=== PATIENT | female | born 1995 | race Caucasian/White ===

== ENCOUNTER 2016-12-14 17:41 | Emergency (ER) | payer OTHER ==
[~2016-12-14] VITALS: Ht 149.9 cm; Wt 44.0 kg
[~2016-12-14 17:41] MED LIST: ALPRAZOLAM ER1 MG PO; AMBIEN10 MG PO; BUPROPION XL300 MG PO; CEFTIN500 MG PO; CEFUROXIME500 MG PO; DOCUSATE SODIU100 MG PO; DOXYCYCLINE HY100 M3 PO; DOXYCYCLINE HY100 MG PO; FERRO-SEQUELS1 EACH PO; IRON325 M1 PO; MICONAZOLE 7100 MG VAGINAL; MONO-LINYAH1 EACH PO; NAPROSYN500 MG PO; NORCO 5-325 TA1 EACH PO; PERCOCET 5-3251 EACH PO; PRENATABS RX T1 EACH PO; PROMETHAZINE HC25 M1 PO; VENLAFAXINE H37.5 M1 PO; VICODIN 5-3001 EACH PO; WELLBUTRIN XL300 MG PO
[2016-12-14] MEDS ORDERED: ALPRAZOLAM XR1 MG PO (20:15)
[2016-12-14] MEDS ORDERED: ALPRAZOLAM0.5 MG PO (22:09)
== END 2016-12-14 22:24 | disposition home or self-care (01) ==
LOC: ED 17:41
DX: F41.0 Panic disorder [episodic paroxysmal anxiety] (principal); F32.9 Major depressive disorder, single episode, unspecified; F17.200 Nicotine dependence, unspecified, uncomplicated; Z90.89 Acquired absence of other organs; Z79.899 Other long term (current) drug therapy
CPT/HCPCS: 99283

== ENCOUNTER 2017-06-05 12:04 | Emergency (ER) | payer OTHER ==
[~2017-06-05] VITALS: Ht 149.9 cm; Wt 46.3 kg
[~2017-06-05 12:04] MED LIST changes: +ALPRAZOLAM XR1 MG PO; +ALPRAZOLAM0.5 MG PO
[2017-06-05] MEDS ORDERED: NAPROSYN500 MG PO (15:07)
== END 2017-06-05 15:16 | disposition home or self-care (01) ==
LOC: ED 12:04
DX: M27.3 Alveolitis of jaws (principal); F32.9 Major depressive disorder, single episode, unspecified; F17.200 Nicotine dependence, unspecified, uncomplicated; Z90.89 Acquired absence of other organs; Z79.899 Other long term (current) drug therapy
CPT/HCPCS: 99283

== ENCOUNTER 2017-10-01 15:35 | Emergency (ER) | payer OTHER ==
[~2017-10-01] VITALS: Ht 149.9 cm; Wt 46.3 kg
== END 2017-10-01 17:18 | disposition home or self-care (01) ==
LOC: ED 15:35
DX: N94.6 Dysmenorrhea, unspecified (principal); F17.200 Nicotine dependence, unspecified, uncomplicated; Z79.899 Other long term (current) drug therapy
CPT/HCPCS: 84703; 85025; 96374; 99283; J2405

== ENCOUNTER 2018-07-18 17:18 | Emergency (ER) | payer OTHER ==
[~2018-07-18] VITALS: Ht 147.3 cm; Wt 43.2 kg
[~2018-07-18 17:18] MED LIST changes: +AUGMENTIN 875-1 EACH PO; +HYDROCODON-ACE1 EA10 PO; +LEVOFLOXACIN500 MG PO; +NICORETTE4 M2 BUCCAL; +NORCO 10-325 T1 EACH PO; +XANAX0.5 MG PO
--- OUTSIDE RECORDS SUMMARY | 2018-07-18 17:22 | XMS ---
PreManage Notification: KATHRYN PHELPS Security Disposition Clerk Events No recent Security Events currently on file CRITERIA MET - 6 ED Visits in 6 Months - [facility] - Has Care Guidelines - PDMP - [facility] - 2 Visits in 30 Days CARE PROVIDERS MERCEDES ANDREWS Family [facility] 04/04/2018-Current PHONE: [phone] DR MERCEDES ANDREWS Primary Care Current PHONE: [phone] MIRYAM RIOS Primary Care Current PHONE: Unknown WENDIE ANDINO DR Primary Care Current PHONE: Unknown [facility] PHONE: Unknown Alona has no Care Guidelines for this patient. Care History Medical/Surgical 04/11/2018 [facility] - PATIENT HAS CELLULITIS OF THE EYE AREA. PATIENT HAS NO SHOWED TO HER PRIMARY CARE APPOINTMENT AND DID NOT SHOW UP TO THE SURGERY THAT WAS SCHEDULED WITH DR KEITH . - PLEASE TAKE PRECAUTIONS WHEN PROVIDING NARCOTICS TO THIS PATIENT. - PATIENT HAS NOT FOLLOWED THROUGH WITH CURRENT MEDICAL HELP/REFERRAL ASSISTANCE. - PLEASE CONTACT CHW AT [facility]- [phone] EMMANUEL IF PATIENT IS SEEN IN THE ED. E.D. VISIT COUNT (12 MO.) [address] [place] [address] TOTAL 7 NOTE: Visits indicate total known visits. ED/UCC VISIT TRACKING (12 MO.) 07/18/2018 17:19 [facility] [place] TYPE: Emergency COMPLAINT: - LEFT FOOT INJURY 07/03/2018 09:28 [facility] [place] TYPE: Emergency DIAGNOSES: - Abscess of the breast and nipple - SPIDER BITE 04/06/2018 02:01 [facility] [place] TYPE: Emergency DIAGNOSES: - Eye Pain - Right Eye Spider Bite - Abscess of right upper eyelid - Insect Bite 04/04/2018 15:14 [facility] [place] TYPE: Emergency COMPLAINT: - R EYE SWOLLEN DIAGNOSES: - Anxiety disorder, unspecified - Cellulitis of right orbit - Unspecified purulent endophthalmitis, right eye - Nicotine dependence, unspecified, uncomplicated - Other intermediate accountant (current) drug therapy - Major depressive disorder, single episode, unspecified 04/03/2018 08:11 [facility] [place] TYPE: Emergency COMPLAINT: - SPIDER BITE/EYE PAIN DIAGNOSES: - Major depressive disorder, single episode, unspecified - Nicotine dependence, unspecified, uncomplicated - Abscess of eyelid right eye, unspecified eyelid - Anxiety disorder, unspecified 03/15/2018 10:41 [facility] [place] TYPE: Emergency COMPLAINT: - POSS OVARIAN CYST 10/01/2017 15:35 [facility] [place] TYPE: Emergency COMPLAINT: - VAGINAL BLEEDING DIAGNOSES: - Nicotine dependence, unspecified, uncomplicated - Abnormal uterine and vaginal bleeding, unspecified - Dysmenorrhea, unspecified - Other fci (current) drug therapy INPATIENT VISIT TRACKING (12 MO.) 03/15/2018 14:[address] [facility] [place] TYPE: Medical Surgical COMPLAINT: - SEPSIS PYELONEPHRITIS DIAGNOSES: - Sepsis due to Escherichia coli [E. coli] - Hypomagnesemia - Hypo-osmolality and hyponatremia - Other specified anxiety disorders - Hypokalemia - Hypovolemia - Sepsis, unspecified organism - Acute pyelonephritis - Other psychoactive substance dependence, in remission [id number]
== END 2018-07-18 18:33 | disposition home or self-care (01) ==
LOC: ED 17:18
DX: S90.32XA Contusion of left foot, initial encounter (principal); F32.9 Major depressive disorder, single episode, unspecified; F41.9 Anxiety disorder, unspecified; F17.200 Nicotine dependence, unspecified, uncomplicated; W23.0XXA Caught, crushed, jammed, or pinched between moving objects, initial encounter
CPT/HCPCS: 73630; 99283

== ENCOUNTER 2018-09-20 19:10 | Emergency (ER) | payer OTHER ==
[~2018-09-20] VITALS: Ht 147.3 cm; Wt 43.1 kg
--- OUTSIDE RECORDS SUMMARY | 2018-09-20 19:12 | XMS ---
PreManage Notification: KATHRYN PHELPS Security Nurse Leader Events No recent Security Events currently on file CRITERIA MET - 6 ED Visits in 6 Months - [facility] CARE PROVIDERS MERCEDES ANDREWS [facility] 04/04/2018-Current PHONE: [phone] DR MERCEDES ANDREWS Primary Care Current PHONE: [phone] MIRYAM RIOS Primary Care Current PHONE: Unknown CLIFF MERCADO Primary Care Current Raffi PHONE: Unknown [facility] PHONE: Unknown Alona has no Care Guidelines for this patient. Care History Medical/Surgical 04/11/[address] [facility] - PATIENT HAS CELLULITIS OF THE EYE AREA. PATIENT HAS NO SHOWED TO HER PRIMARY CARE APPOINTMENT AND DID NOT SHOW UP TO THE SURGERY THAT WAS SCHEDULED WITH DR KEITH . - PLEASE TAKE PRECAUTIONS WHEN PROVIDING NARCOTICS TO THIS PATIENT. - PATIENT HAS NOT FOLLOWED THROUGH WITH CURRENT MEDICAL HELP/REFERRAL ASSISTANCE. - PLEASE CONTACT CHW AT [facility]- [phone] EMMANUEL IF PATIENT IS SEEN IN THE ED. E.D. VISIT COUNT (12 MO.) 1 [facility] [address] TOTAL 8 NOTE: Visits indicate total known visits. ED/C VISIT TRACKING (12 MO.) 09/20/2018 19:11 [facility] [place] TYPE: Emergency COMPLAINT: - WOUND CHECK 07/18/2018 17:19 [facility] [place] TYPE: Emergency COMPLAINT: - LEFT FOOT INJURY DIAGNOSES: - Contusion of left foot, initial encounter - Caught, crushed, jammed, or pinched between moving objects, initial encounter - Nicotine dependence, unspecified, uncomplicated - Anxiety disorder, unspecified - Major depressive disorder, single episode, unspecified - Pain in left foot 07/03/2018 09:28 [facility] [place] TYPE: Emergency DIAGNOSES: - Abscess of the breast and nipple - SPIDER BITE 04/06/2018 02:01 [facility] [place] H. TYPE: Emergency DIAGNOSES: - Eye Pain - Right Eye Spider Bite - Abscess of right upper eyelid - Insect Bite 04/04/2018 15:14 [facility] [place] TYPE: Emergency COMPLAINT: - R EYE SWOLLEN DIAGNOSES: - Anxiety disorder, unspecified - Cellulitis of right orbit - Unspecified purulent endophthalmitis, right eye - Nicotine dependence, unspecified, uncomplicated - Other laborer marine terminal (current) drug therapy - Major depressive disorder, single episode, unspecified 04/03/2018 08:11 [facility] [place] TYPE: Emergency COMPLAINT: - SPIDER BITE/EYE PAIN DIAGNOSES: - Major depressive disorder, single episode, unspecified - Nicotine dependence, unspecified, uncomplicated - Abscess of eyelid right eye, unspecified eyelid - Anxiety disorder, unspecified 03/15/2018 10:[address] [place] TYPE: Emergency COMPLAINT: - POSS OVARIAN CYST 10/01/2017 15:35 [facility] [place] TYPE: Emergency COMPLAINT: - VAGINAL BLEEDING DIAGNOSES: - Nicotine dependence, unspecified, uncomplicated - Abnormal uterine and vaginal bleeding, unspecified - Dysmenorrhea, unspecified - Other mcfp (current) drug therapy INPATIENT VISIT TRACKING (12 MO.) 03/15/2018 14:55 [facility] [place] TYPE: Medical Surgical COMPLAINT: - SEPSIS PYELONEPHRITIS DIAGNOSES: - Sepsis due to Escherichia coli [E. coli] - Hypomagnesemia - Hypo-osmolality and hyponatremia - Other specified anxiety disorders - Hypokalemia - Hypovolemia - Sepsis, unspecified organism - Acute pyelonephritis - Other psychoactive substance dependence, in remission [id number]
[2018-09-20] MEDS ORDERED: KEFLEX500 MG PO (19:54)
[2018-09-20] MEDS ORDERED: BACTRIM DS TAB1 EACH PO (19:54)
== END 2018-09-20 20:04 | disposition home or self-care (01) ==
LOC: ED 19:10
DX: L02.214 Cutaneous abscess of groin (principal); F17.200 Nicotine dependence, unspecified, uncomplicated
CPT/HCPCS: 99282

== ENCOUNTER 2019-04-20 18:48 | Emergency (ER) | payer OTHER ==
[~2019-04-20] VITALS: Ht 147.3 cm; Wt 43.2 kg
--- OUTSIDE RECORDS SUMMARY | ~2019-04-20 | XMS | Clinical Summary ---
Demographics + + + | Address | [address] | | | [place] [address] | + + + | Home Phone | | + + + | Preferred Language | Unknown | + + + | Marital Status | Single | + + + | Moravian Affiliation | Unknown | + + + | Race | Unknown | + + + | Ethnic Group | Unknown | + + + Author + + + | Author | [facility] [place] | | | and [place] | + + + | Organization | [facility] [place] | | | and [place] | + + + | Address | Unknown | + + + | Phone | Unavailable | + + + Support + + +---------+ + | Name | Relationship | Address | Phone | + + +---------+ + | Provided None | ECON | Unknown | | + + +---------+ + Care Team Providers + +------+ + | Care Regional Business Manager Name | Role | Phone | + +------+ + | No, Physician | PCP | Unavailable | + +------+ + Allergies No Known Allergies Medications No known medications Active Problems Not on file Social History + +-------+ +--------+------+ | Tobacco Use | Types | Packs/Day | Years | Date | | | | | Used | | + +-------+ +--------+------+ | Never Assessed | | | | | + +-------+ +--------+------+ + + + | Sex Assigned at | Date Recorded | | | | + + + | Not on file | | + + + + + + + | Job Start Date | Occupation | Industry | + + + + | Not on file | Not on file | Not on file | + + + + + + + + | Travel History | Travel Start | Travel End | + + + + + + | No recent travel history available. | + + Last Filed Vital Signs + + + + + | Vital Sign | Reading | Time Taken | Comments | + + + + + | Blood Pressure | 124/83 | 09/22/2018 6:48 AM | | | | | PDT | | + + + + + | Pulse | 89 | 09/22/2018 6:48 AM | | | | | PDT | | + + + + + | Temperature | 36.9 C (98.4 F) | 09/22/2018 6:48 AM | | | | | PDT | | + + + + + | Respiratory Rate | 20 | 09/22/2018 6:48 AM | | | | | PDT | | + + + + + | Oxygen Saturation | 96% | 09/22/2018 6:48 AM | | | | | PDT | | + + + + + | Inhaled Oxygen | - | - | | | Concentration | | | | + + + + + | Weight | - | - | | + + + + + | Height | - | - | | + + + + + | Body Mass Index | - | - | | + + + + + Plan of Treatment + + + + + | Health Maintenance | Due Date | Last Done | Comments | + + + + + | Vaccine: HPV (1 - | | | | | Female 3-dose | 1 | | | | series) | | | | + + + + + | Vaccine: | | | | | Dtap/Tdap/Td (1 - | 5 | | | | Tdap) | | | | + + + + + | Cervical Cancer | | | | | Screening (Pap) | 7 | | | + + + + + | Vaccine: Influenza | | | | | (#1) | 9 | | | + + + + + Results Not on filefrom Last 3 Months Insurance + +--------+ +--------+ +---------+--------+ | Payer | Benefi | Subscriber | Effect | Phone | Address | Type | | | t Plan | ID | james | | | | | | / | | Dates | | | | | | Group | | | | | | + +--------+ +--------+ +---------+--------+ | [place] | MEDICA | [id number] | | [phone] | | Med[place] | | | [place] | | [id number]-Pr | 2 | | id | | | PLUS | | esent | | | | + +--------+ +--------+ +---------+--------+ + +--------+ +--------+ + + | Guarantor Name | Accoun | Relation to | Date | Phone | Billing Address | | | t Type | Patient | of | | | | | | | | | | + +--------+ +--------+ + + | Ana Marcano | Person | Self | [birth year] | [address] | | | al/Fam | | 1996 | [phone] | [place] [address] | | | marleny | | | 6 (Home) | | + +--------+ +--------+ + + Advance Directives + + + + + | Type | Date Recorded | Patient | Explanation | | | | Food Manager | | + + + + + | Power of | | | | | Typesetting Supervisor | | | | + + + + + | Advance | 09/22/2018 6:52 | | | | Directive | AM | | | + + + + +"
--- OUTSIDE RECORDS SUMMARY | ~2019-04-20 | XMS | Clinical Summary ---
Demographics + + + | Address | [address] | | | [place] [address] | + + + | Home Phone | | + + + | Preferred Language | Unknown | + + + | Marital Status | Single | + + + | Bahai Affiliation | Unknown | + + + | Race | Unknown | + + + | Ethnic Group | Unknown | + + + Author + + + | Author | [facility] [place] | | | and [place] | + + + | Organization | [facility] [place] | | | and [place] [...] Team Providers + +------+ + | Care Revenue Investigator Name | Role | Phone | + [...] +---------+--------+ | [place] | MEDICA | [id number] | | [phone] | | Medica | [...] Person | Self | [birth year] | [address] | | | al/Fam | | 1996 | [phone] | [place] [address] | | | marleny | | | 6 (Home) | | + +--------+ +--------+ + + Advance Directives + + + + + | Type | Date Recorded | Patient | Explanation | | | | Fur Nailer | | + + + + + | Power of | | | | | Sewing Machine Bobbin Winder | | | | + + + + + | Advance | 09/22/2018 6:52 | | | | Directive | AM | | | + + + + +"
--- OUTSIDE RECORDS SUMMARY | ~2019-04-20 | XMS | Encounter Summary ---
Demographics + + + | Address | [address] | | | [place] [address] | + + + | Home Phone | | + + + | Preferred Language | Unknown | + + + | Marital Status | Single | + + + | Catholic Affiliation | Unknown | + + + | Race | Unknown | + + + | Ethnic Group | Unknown | + + + Author + + + | Author | [facility] [place] | | | and [place] | + + + | Organization | [facility] [place] | | | and [place] | [...] Team Providers + +------+ + | Care Medical Physics Teacher Name | Role | Phone | + +------+ + | No, Physician | PCP | Unavailable | + +------+ + Reason for Visit +---------+ + | Reason | Comments | +---------+ + | Abscess | groin area. | +---------+ + Encounter Details +--------+ + + + + | Date | Type | Department | Care Team | Description | +--------+ + + + + | 09/22/ | Emergency | [facility] | Manjit Gallagher MD | Abscess (Primary Dx) | | 2019 | | [facility] | [address] | | | | | CENTER [address] | [place] | | | | | [place] | [address] | | | | | [address] | | | | | | [phone] | | | +--------+ + + + + Social History + +-------+ +--------+------+ | Tobacco [...] recent travel history available. | + + documented as of this encounter Last Filed Vital Signs + + + [...] | | + + + + + documented in this encounter Discharge Instructions Instructions Manjit Gallagher MD - 09/22/2018Please take antibiotics as prescribed. Return for any worsening pain, fevers, chills, nausea, vomiting. Keep area dry and clean. AttachmentsThe following attachments cannot be sent through Care Everywhere.Abscess, Antibi otic Treatment Only (Ukrainian)documented in this encounter Medications at Time of Discharge + + + +---------+ + + | Medication | Sig | Dispensed | Refills | Start | End Date | | | | | | Date | | + + + +---------+ + + | | Take 1 tablet by | 14 | 0 | 09/23/19 | | | sulfamethoxazole-tri | mouth 2 times daily | tablet | | 19 | 9 | | methoprim (BACTRIM | for 7 days. | | | | | | DS) 800-160 mg per | | | | | | | tablet | | | | | | + + + +---------+ + + documented as of this encounter Plan of Treatment + +------+--------+ + + | Name | Type | Priori | Associated Diagnoses | Date/Time | | | | ty | | | + +------+--------+ + + | ED INFORMATION | TRACIE | Routin | | 09/22/2018 7:00 AM | | EXCHANGE | | e | | PDT | + +------+--------+ + + documented as of this encounter Visit Diagnoses + + | Diagnosis | + + | Abscess - Primary Cellulitis and abscess of unspecified site | + + documented in this encounter"
--- OUTSIDE RECORDS SUMMARY | ~2019-04-20 | XMS | Encounter Summary ---
Demographics + + + | Address | [address] | | | [place] [address] | + + + | Home Phone | | + + + | Preferred Language | Unknown | + + + | Marital Status | Single | + + + | Gnosticism Affiliation | Unknown | + + + | Race | Unknown | + + + | Ethnic Group | Unknown | + + + Author + + + | Author | [facility] [place] | | | and [place] | + + + | Organization | [facility] [place] | | | and [place] | [...] Team Providers + +------+ + | Care Care Process Manager Name | Role | Phone | [...] | | | | CENTER [address] | [place] | | | | | [place] | [address] | | | | | [address] | | | | | | [phone] | | | +--------+ + + + [...] through Care Everywhere.Abscess, Antibi otic Treatment Only (Urdu)documented in this encounter Medications at Time of [...]
[~2019-04-20 18:48] MED LIST changes: +BACTRIM DS TAB1 EACH PO; +KEFLEX500 MG PO
--- OUTSIDE RECORDS SUMMARY | 2019-04-20 18:54 | XMS ---
PreManage Notification: KATHRYN PHELPS Security Herbicide Service Sales Representative Events No recent Security Events currently on file CRITERIA MET - [facility] CARE PROVIDERS MERCEDES ANDREWS [facility] 04/04/2018-Current PHONE: [phone] DR MERCEDES ANDREWS Primary Care Current PHONE: [phone] MIRYAM RIOS Primary Care Current PHONE: Unknown [facility] August RASHEED [facility] Primary Care Current PHONE: Unknown [facility] Primary Care [facility] PHONE: Unknown Alona has no Care Guidelines for this patient. Care History Medical/Surgical 09/21/2018 [facility] - PATIENT CURRENTLY AT A DETOX FACILITY. - EOIPA CASE MANAGEMENT CONSULT MADE- DUE TO RECENT ED UTILIZATION AND RESOURCES. 04/11/2018 [facility] - PATIENT HAS CELLULITIS OF THE EYE AREA. PATIENT HAS NO SHOWED TO HER PRIMARY CARE APPOINTMENT AND DID NOT SHOW UP TO THE SURGERY THAT WAS SCHEDULED WITH DR KEITH . - PLEASE TAKE PRECAUTIONS WHEN PROVIDING NARCOTICS TO THIS PATIENT. - PATIENT HAS NOT FOLLOWED THROUGH WITH CURRENT MEDICAL HELP/REFERRAL ASSISTANCE. - PLEASE CONTACT CHW AT [facility]- [phone] EMMANUEL IF PATIENT IS SEEN IN THE ED. ERosmery VISIT COUNT (12 MO.) 1 [facility] 1 [facility] 5 NOTE: Visits indicate total known visits. ED/UCC VISIT TRACKING (12 MO.) 04/20/2019 18:48 [facility] TYPE: Emergency COMPLAINT: - VOMITING 09/22/2018 06:36 [facility] Sabrina WEINSTEIN TYPE: Emergency DIAGNOSES: - Abscess - Cutaneous abscess, unspecified 09/20/2018 19:11 [facility] TYPE: Emergency COMPLAINT: - WOUND CHECK DIAGNOSES: - Cutaneous abscess of groin - Nicotine dependence, unspecified, uncomplicated 07/18/2018 17:19 [facility] [place] TYPE: Emergency COMPLAINT: - LEFT FOOT INJURY DIAGNOSES: - Contusion of left foot, initial encounter - Caught, crush, jammed, or pinched betw moving objects, init - Nicotine dependence, unspecified, uncomplicated - Anxiety disorder, unspecified - Major depressive disorder, single episode, unspecified - Pain in left foot 07/03/2018 09:28 [facility] [place] TYPE: Emergency DIAGNOSES: - Abscess of the breast and nipple - SPIDER BITE INPATIENT VISIT TRACKING (12 MO.) No inpatient visits to display in this time frame [id number]
[2019-04-20] MEDS ORDERED: PROZAC20 MG PO (19:04)
[2019-04-20] MEDS ORDERED: SUBOXONE 4 MG-1 EACH SL (19:10)
== END 2019-04-20 21:29 | disposition home or self-care (01) ==
LOC: ED 18:48
DX: F15.90 Other stimulant use, unspecified, uncomplicated (principal); F32.9 Major depressive disorder, single episode, unspecified; F41.9 Anxiety disorder, unspecified; F17.200 Nicotine dependence, unspecified, uncomplicated; Z79.899 Other long term (current) drug therapy
CPT/HCPCS: 80053; 81001; 83690; 84703; 85025; 96374; 96375; 99284-25; G0480; J2405; J7030

== ENCOUNTER 2019-06-26 07:36 | Emergency (ER) | payer OTHER ==
[~2019-06-26] VITALS: Ht 147.3 cm; Wt 50.0 kg
[~2019-06-26 07:36] MED LIST changes: +PROZAC20 MG PO; +SUBOXONE 4 MG-1 EACH SL
--- NOTE | 2019-06-26 13:06 | EKG ---
[facility] [address] [facility] [place] [address] Signed Sinus bradycardia Rightward axis Borderline ECG No previous ECGs available Confirmed by DREW GRAHAM DO ([id number]) on 06/26/2019 1:06:48 PM Electronically Signed By: DREW GRAHAM DO 06/26/19 1306 PATIENT NAME: KATHRYN PHELPS Electrocardiogram DATE OF : [birth year] PHYSICIAN: DREW GRAHAM DO REPORT #: [id number] REPORT IS CONFIDENTIAL AND NOT TO BE RELEASED WITHOUT AUTHORIZATION
== END 2019-06-26 09:20 | disposition home or self-care (01) ==
LOC: ED 07:36
DX: R55 Syncope and collapse (principal); F32.9 Major depressive disorder, single episode, unspecified; F41.9 Anxiety disorder, unspecified; F17.200 Nicotine dependence, unspecified, uncomplicated; Z79.899 Other long term (current) drug therapy
CPT/HCPCS: 70450; 70486; 80053; 84703; 85025; 93005; 93010; 96374; 99284-25; A9270; J2405; J7121

== ENCOUNTER 2020-09-27 09:37 | Emergency (ER) | payer OTHER ==
[~2020-09-27] VITALS: Ht 147.3 cm; Wt 54.6 kg
--- OUTSIDE RECORDS SUMMARY | 2020-09-27 09:40 | XMS ---
PreManage Notification: KATHRYN PHELPS Security Instructional Coach Events No recent Security Events currently on file CRITERIA MET - [facility] Guidelines - History of Sepsis Dx - PDMP CARE PROVIDERS MERCEDES ANDREWS [facility] 04/04/2018-Current PHONE: [phone] DENTAL, [facility] Clinic/Center: Primary Care 09/24/2019-Current MEDICAL CONCERN PHONE: [phone] [facility] Volumetric Weigher 09/24/2019-[facility] PHONE: [phone] Guidelines Source: [facility] Jennifer Carrasco Guidelines Date: 06/29/2019 Care Coordination: Receiving mental health services with [facility].\T\nbsp; Please contact [facility] for mental health concerns.\T\nbsp; [place] office: [phone]\T\nbsp; [place] office: [phone]. Care History Medical/Surgical 04/23/2019 [facility] - PATIENT CONTACT NUMBER LISTED IS NO LONGER IN SERVICE - PLEASE ASK PATIENT FOR UPDATED CONTACT # - [facility] REFERRAL MADE-FOR CLOSE CASE MGMT FOLLOW UP IN REGARDS TO SUBSTANCE USE. - [facility]\T\amp;D [facility]- IF PATIENT ACCEPTS SERVICES- . - [employer] A\T\amp;D SERVICES CAN PROVIDE PATIENT WITH DRIVER LICENSE EXAMINER AND HELP WITH COMMUNITY RESOURCES. 09/21/2018 [facility] - PATIENT CURRENTLY AT A DETOX FACILITY. - EOIPA CASE MANAGEMENT CONSULT MADE- DUE TO RECENT ED UTILIZATION AND RESOURCES. 04/11/2018 [facility] - PATIENT HAS CELLULITIS OF THE EYE AREA. PATIENT HAS NO SHOWED TO HER PRIMARY CARE APPOINTMENT AND DID NOT SHOW UP TO THE SURGERY THAT WAS SCHEDULED WITH DR KEITH . - PLEASE TAKE PRECAUTIONS WHEN PROVIDING NARCOTICS TO THIS PATIENT. - PATIENT HAS NOT FOLLOWED THROUGH WITH CURRENT MEDICAL HELP/REFERRAL ASSISTANCE. - PLEASE CONTACT CHW AT [facility]- [phone] EMMANUEL IF PATIENT IS SEEN IN THE ED. [place] VISIT COUNT (12 MO.) 3 [facility] 1 [facility]. TOTAL 4 NOTE: Visits indicate total known visits. ED/UCC VISIT TRACKING (12 MO.) 09/27/2020 09:38 [facility] [place] TYPE: Emergency COMPLAINT: - CHEMICAL IN EYES 01/10/2020 17:10 [facility] [place] TYPE: Emergency DIAGNOSES: - suicidal thoughts - Major depressive disorder, single episode, unspecified - Suicidal ideations 11/29/2019 13:39 [facility] [place] TYPE: Emergency DIAGNOSES: - Reserved for inherently not codable concepts without codable children - Opioid dependence with withdrawal - COVID TESTING SENT BY REHAB 11/11/2019 09:22 [facility] [place] TYPE: Emergency DIAGNOSES: - kidney infection - Acute pyelonephritis INPATIENT VISIT TRACKING (12 MO.) No inpatient visits to display in this time frame [email or web address]
== END 2020-09-27 10:50 | disposition home or self-care (01) ==
LOC: ED 09:37
DX: T65.891A Toxic effect of other specified substances, accidental (unintentional), initial encounter (principal); H10.212 Acute toxic conjunctivitis, left eye; Y99.0 Civilian activity done for income or pay; F17.200 Nicotine dependence, unspecified, uncomplicated
CPT/HCPCS: 99283

== ENCOUNTER 2023-01-21 11:27 | Emergency (ER) | payer OTHER ==
[~2023-01-21] VITALS: Ht 147.3 cm; Wt 45.2 kg
--- OUTSIDE RECORDS SUMMARY | ~2023-01-21 | XMS | Continuity of Care Document ---
Demographics + + + | Address | [address] | | | [place] [address] | + + + | Preferred Language | Unknown | + + + | Marital Status | Never | + + + | Lutheran Affiliation | Unknown | + + + | Race | White | + + + | Ethnic Group | Unknown | + + + Author + + + | Author | [facility] | + + + | Organization | [facility] | + + + | Address | [address] | | | [place] [address] | + + + | Phone | | + + + Care Team Providers + + + + | Care Duck Farmer Name | Role | Phone | + + + + Unavailable | Unavailable | + + + + Allergies and Intolerances + + + + + + | date | description | facility | reaction | severity | + + + + + + | (no date) | No Known | [facility] | (no reaction) | (no severity) | | | Allergies | | | | + + + + + + Encounters No information. Functional Status No information. Immunizations No information. Medications No information. Problems + + + + | date | description | facility | + + + + | 2016-04-08 16:25 | NICOTINE DEPENDENCE, | [facility] | | | CIGARETTES, UNCOMPLICATED | | + + + + | 2016-04-08 16:25 | ANXIETY DISORDER, | [facility] | | | UNSPECIFIED | | + + + + | 2016-04-08 16:25 | SALPINGITIS AND | [facility] | | | OOPHORITIS, UNSPECIFIED | | + + + + | 2016-04-08 16:25 | CANDLE MAKING SUPERVISOR (CURRENT) USE OF | [facility] | | | HORMONAL CONTRACEPTIVES | | + + + + | 2016-06-25 19:27 | NICOTINE DEPENDENCE, | [facility] | | | UNSPECIFIED, UNCOMPLICATED | | + + + + | 2016-06-25 19:27 | MAJOR DEPRESSIVE DISORDER, | [facility] | | | SINGLE EPISODE, UNSPECI | | + + + + | 2016-06-25 19:27 | PELVIC AND PERINEAL PAIN | [facility] | + + + + | 2016-06-25 19:27 | LEFT LOWER QUADRANT PAIN | [facility] | + + + + | 2016-06-25 19:27 | ACQUIRED ABSENCE OF OTHER | [facility] | | | ORGANS | | + + + + | 2016-06-25 19:27 | OTHER SPECIFIED | [facility] | | | POSTPROCEDURAL STATES | | + + + + | 2023-01-03 12:00 | ENCOUNTER FOR SUPRVSN OF | [facility] | | | NORMAL PREGNANC | | + + + + | 2023-01-03 12:08 | ENCOUNTER FOR SUPRVSN OF | [facility] | | | NORMAL PREGNANC | | + + + + | 2023-01-03 12:08 | ENCOUNTER FOR SUPRVSN OF | [facility] | | | NORMAL , FIRST | | | | TRIMESTER | | + + + + Procedures No information. Results/Labs No information. Social History No information. Vital Signs No information."
--- OUTSIDE RECORDS SUMMARY | 2023-01-21 11:31 | XMS ---
PreManage Notification: KATHRYN PHELPS Security Hunting Guide Events No recent Security Events currently on file CRITERIA MET - JONNY CARE PROVIDERS -[place]- Dentist: Energy Economist [facility] PHONE: [phone] MERCEDES ANDREWS [facility] 04/04/2018-Current PHONE: Unknown [facility] General Internist And Physician Leader 09/24/2019-[facility] PHONE: [phone] MARIAELENA MURGUIA/Center: Primary Care 09/24/2019-[facility] PHONE: [phone] Care Guidelines exist for the following facilities: [employer] [facility] [place] ( 06/29/2019 ) Care History Medical/Surgical 04/23/2019 [facility] - PATIENT CONTACT NUMBER LISTED IS NO LONGER IN SERVICE - PLEASE ASK PATIENT FOR UPDATED CONTACT # - [facility]FOR CLOSE CASE MGMT FOLLOW UP IN REGARDS TO SUBSTANCE USE. - PLEASE CONTACT [employer] A\T\amp;D SERVICES- IF PATIENT ACCEPTS SERVICES- [phone]. - [employer] A\T\amp;D SERVICES CAN PROVIDE PATIENT WITH PARCEL POST TRUCK DRIVER AND HELP WITH COMMUNITY RESOURCES. 09/21/2018 [facility] - PATIENT CURRENTLY AT A DETOX FACILITY. - EOIPA CASE MANAGEMENT CONSULT MADE- DUE TO RECENT ED UTILIZATION AND RESOURCES. 04/11/2018 [facility] - PATIENT HAS CELLULITIS OF THE EYE AREA. PATIENT HAS NO SHOWED TO HER PRIMARY CARE APPOINTMENT AND DID NOT SHOW UP TO THE SURGERY THAT WAS SCHEDULED WITH DR KEITH . - PLEASE TAKE PRECAUTIONS WHEN PROVIDING NARCOTICS TO THIS PATIENT. - PATIENT HAS NOT FOLLOWED THROUGH WITH CURRENT MEDICAL HELP/REFERRAL ASSISTANCE. - PLEASE CONTACT CHW AT [facility]- [phone] EMMANUEL IF PATIENT IS SEEN IN THE ED. E.D. VISIT COUNT (12 MO.) 1 [facility] TOTAL 1 NOTE: Visits indicate total known visits. ED/UCC VISIT TRACKING (12 MO.) 01/21/2023 11:28 [facility] [place] TYPE: Emergency COMPLAINT: - 11 WKS PG, SPOTTING INPATIENT VISIT TRACKING (12 MO.) No inpatient visits to display in this time frame [email or web address]
[2023-01-21] MEDS ORDERED: BUPRENORPHINE HC8 MG SL (11:43)
[2023-01-21] MEDS ORDERED: PROZAC20 MG PO (11:43)
[2023-01-21] MEDS ORDERED: PRENATAL COMPL1 EACH PO (11:44)
[2023-01-21 12:07] LABS: BILIRUBIN, URINE NEGATIVE (negative); BLOOD/HGB, URINE NEGATIVE (Negative); KETONE, URINE NEGATIVE (Negative); LEUK ESTERASE, URINE NEGATIVE (negative); NITRITE, URINE NEGATIVE (negative); PH, URINE 6.5 (5-7)
[2023-01-21 12:08] LABS: BASOPHILS 0.3 % (0-2); EOSINOPHILS 0.5 % (0-6); HEMATOCRIT 35.7 % (35.0-50.0); HEMOGLOBIN 11.9 g/dL (12.0-18.0); LYMPHOCYTES 32.6 % (24-44); MCH 28.3 (27-36); MCHC 33.2 g/dl (30-36); MCV 85.2 fl (81-99); NEUTROPHILS 60.6 % (39-80); PLATELET COUNT 221 K/uL (140-440); RBC 4.19 M/ul (4.3-5.7); RDW 12.8 (10.5-15.0)
[2023-01-21 12:54] LABS: ALBUMIN 3.8 g/dL (3.4-5.0); ALBUMIN/GLOBULIN RATIO 1.15 (1.1-2.4); ANION GAP 13.5 (7-21); BILIRUBIN, TOTAL 0.4 ng/dL (0.2-1.0); CREATININE, SERUM 0.45 mg/dL (0.55-1.02); POTASSIUM 3.5 mmol/L (3.5-5.1); PROTEIN, TOTAL 7.1 g/dL (6.4-8.2)
[2023-01-21 13:26] VITALS: BP 95/63
== END 2023-01-21 13:26 | disposition home or self-care (01) ==
LOC: ED 11:27
PROVIDERS: Student in an Organized Health Care Education/Training Program
DX: O26.851 Spotting complicating pregnancy, first trimester (principal); O34.01 Maternal care for unspecified congenital malformation of uterus, first trimester; Q51.3 Bicornate uterus; O99.331 Smoking (tobacco) complicating pregnancy, first trimester; F17.200 Nicotine dependence, unspecified, uncomplicated; Z3A.11 11 weeks gestation of pregnancy; Z79.899 Other long term (current) drug therapy
CPT/HCPCS: 36415; 76801; 76817; 80053; 81003; 84702; 85025; 99284-25; 99406